=== PATIENT | female | born 1980 | race Caucasian/White ===

== ENCOUNTER 2020-02-29 01:23 | Outpatient (CLI) | payer MEDICAID ==
[2020-02-29 02:45] VITALS: BP 137/75
== END 2020-02-29 02:50 | disposition home or self-care (01) ==
LOC: TRG 01:23 → APU 01:26 → TRG 02:50
PROVIDERS: ATTEND Obstetrics & Gynecology
DX: O47.1 False labor at or after 37 completed weeks of gestation (principal); Z3A.38 38 weeks gestation of pregnancy
CPT/HCPCS: 59025

== ENCOUNTER 2022-04-18 17:32 | Emergency (ER) | payer MEDICAID ==
[2022-04-18 19:12] VITALS: BP 167/99
[2022-04-18] MEDS ORDERED: IBUPROFEN 800 MG TAB PO ONE (19:13)
--- NOTE | 2022-04-18 22:23 | Emergency Department Report ---
ED ENT HPI - General Chief complaint: Earache Stated complaint: RIGHT EAR ACHE/HEAD ACHE/PAIN WHEN SWALLOW Time Seen by Provider: 04/18/22 20:47 Source: patient Mode of arrival: Ambulatory Limitations: No Limitations - History of Present Illness Initial comments: 41-year-old female with history of TMJ syndrome presents to the emergency department states she was over her friend's house and smoked some cigarettes on yesterday evening developed a pressure to the area of the progressively had worsening last night to this point of pain this morning. Pain is dull and throbbing with no palliative or provocative factors. Hearing slightly muffled but reports no no dizziness. No sore throat. No headache, no blurry vision, no ear discharge. No direct trauma to her knowledge. -: Gradual Location: R ear Severity: mild, moderate Quality: dull Consistency: constant Improves with: none Worsens with: none Associated Symptoms: denies: gum swelling, toothache, pain with swallowing, tinnitus, discharge from ear, rhinorrhea - Related Data Home Medications Medication Instructions Recorded Confirmed Last Taken Cetirizine HCl [Zyrtec] 10 mg PO DAILY 09/07/13 03/20/20 09/05/13 21:00 10 mg ALBUTEROL NEB's [Proventil 0.083% 2.5 mg IH TID PRN 12/22/19 03/20/20 12/21/19 10:00 NEBS] Ondansetron [Zofran Odt] 4 mg PO Q8HR PRN MDD 24 12/22/19 03/20/20 Unknown Vit-Fe Fumar-FA [ 1 tab PO QDAY 12/22/19 03/20/20 03/19/20 09:00 Vitamin] Previous Rx's Medication Instructions Recorded Last Taken Type Cefdinir 300 mg PO BID #20 cap 04/18/22 Unknown Rx Ketorolac [Toradol] 10 mg PO Q6H PRN #20 04/18/22 Unknown Rx Allergies Allergy/AdvReac Type Severity Reaction Status Date / Time acetaminophen [From Percocet] Allergy Rash Verified 07/05/14 23:59 clindamycin Allergy Swelling Verified 07/05/14 23:59 hydrocodone bitartrate Allergy Rash Verified 07/05/14 23:59 [From Vicodin] hydromorphone [Hydromorphone] Allergy Rash Verified 07/05/14 23:59 hydromorphone HCl Allergy Rash Verified 07/05/14 23:59 [From Dilaudid] montelukast sodium Allergy Rash Verified 07/05/14 23:59 [From Singulair] oxycodone HCl [From Percocet] Allergy Rash Verified 07/05/14 23:59 Penicillins Allergy Itching Verified 07/05/14 23:59 tinidazole [Tinidazole] Allergy Anaphylaxis Verified 07/05/14 23:59 tramadol Allergy Itching Verified 07/05/14 23:59 ED Dental HPI - General Chief complaint: Earache Stated complaint: RIGHT EAR ACHE/HEAD ACHE/PAIN WHEN SWALLOW Time Seen by Provider: 04/18/22 20:47 Source: patient Mode of arrival: Ambulatory Limitations: No Limitations - Related Data Home Medications Medication Instructions Recorded Confirmed Last Taken Cetirizine HCl [Zyrtec] 10 mg PO DAILY 09/07/13 03/20/20 09/05/13 21:00 10 mg ALBUTEROL NEB's [Proventil 0.083% 2.5 mg IH TID PRN 12/22/19 03/20/20 12/21/19 10:00 NEBS] Ondansetron [Zofran Odt] 4 mg PO Q8HR PRN MDD 24 12/22/19 03/20/20 Unknown Vit-Fe Fumar-FA [ 1 tab PO QDAY 12/22/19 03/20/20 03/19/20 09:00 Vitamin] Previous Rx's Medication Instructions Recorded Last Taken Type Cefdinir 300 mg PO BID #20 cap 04/18/22 Unknown Rx Ketorolac [Toradol] 10 mg PO Q6H PRN #20 04/18/22 Unknown Rx Allergies Allergy/AdvReac Type Severity Reaction Status Date / Time acetaminophen [From Percocet] Allergy Rash Verified 07/05/14 23:59 clindamycin Allergy Swelling Verified 07/05/14 23:59 hydrocodone bitartrate Allergy Rash Verified 07/05/14 23:59 [From Vicodin] hydromorphone [Hydromorphone] Allergy Rash Verified 07/05/14 23:59 hydromorphone HCl Allergy Rash Verified 07/05/14 23:59 [From Dilaudid] montelukast sodium Allergy Rash Verified 07/05/14 23:59 [From Singulair] oxycodone HCl [From Percocet] Allergy Rash Verified 07/05/14 23:59 Penicillins Allergy Itching Verified 07/05/14 23:59 tinidazole [Tinidazole] Allergy Anaphylaxis Verified 07/05/14 23:59 tramadol Allergy Itching Verified 07/05/14 23:59 ED Review of Systems ROS: Stated complaint: RIGHT EAR ACHE/HEAD ACHE/PAIN WHEN SWALLOW Other details as noted in HPI Comment: All other systems reviewed and negative ED Past Medical Hx - Past Medical History Hx Hypertension: Yes Hx Congestive Heart Failure: No Hx Diabetes: No Hx Deep Vein Thrombosis: No Hx Renal Disease: No Hx Sickle Cell Disease: No Hx Seizures: No Hx Asthma: Yes (LAST ATTACK 2 MONTHS AGO) Hx COPD: No Hx HIV: No - Surgical History Additional Surgical History: tonsillectomy. hemorroid. - Social History Smoking Status: Never Smoker - Medications Home Medications: Home Medications Medication Instructions Recorded Confirmed Last Taken Type Cetirizine HCl [Zyrtec] 10 mg PO DAILY 09/07/13 03/20/20 09/05/13 21:00 History 10 mg ALBUTEROL NEB's [Proventil 0.083% 2.5 mg IH TID PRN 12/22/19 03/20/20 12/21/19 10:00 History NEBS] Ondansetron [Zofran Odt] 4 mg PO Q8HR PRN MDD 24 12/22/19 03/20/20 Unknown History Vit-Fe Fumar-FA [ 1 tab PO QDAY 12/22/19 03/20/20 03/19/20 09:00 History Vitamin] Cefdinir 300 mg PO BID #20 cap 04/18/22 Unknown Rx Ketorolac [Toradol] 10 mg PO Q6H PRN #20 04/18/22 Unknown Rx ED Physical Exam - General Limitations: No Limitations General appearance: alert, in no apparent distress - Head Head exam: Present: atraumatic, normocephalic - Eye Eye exam: Present: normal appearance - ENT ENT exam: Present: mucous membranes moist, other (No tenderness with palpation along the TMJ). Absent: TM's normal bilaterally (Tympanic membrane right side is red swollen with effusion suggestive of otitis media infection. No tragal tenderness or pinna tenderness noted. Her ear canal relatively normal. No abrasions no mastoid tenderness on palpation no lymphadenopathy present. Her pharynx is clear airway patent tongue u) - Neck Neck exam: Present: normal inspection - Respiratory Respiratory exam: Present: normal lung sounds bilaterally. Absent: respiratory distress - Cardiovascular Cardiovascular Exam: Present: regular rate, normal rhythm. Absent: systolic murmur, diastolic murmur, rubs, gallop - GI/Abdominal GI/Abdominal exam: Present: soft, normal bowel sounds - Extremities Exam Extremities exam: Present: normal inspection - Back Exam Back exam: Present: normal inspection - Neurological Exam Neurological exam: Present: alert, oriented X3 - Psychiatric Psychiatric exam: Present: normal affect, normal mood - Skin Skin exam: Present: warm, dry, intact, normal color. Absent: rash ED Course Vital Signs 04/18/22 19:11 Temperature 98.9 F Pulse Rate 81 Respiratory 18 Rate Blood Pressure 167/99 O2 Sat by Pulse 100 Oximetry Critical care attestation.: If time is entered above; I have spent that time in minutes in the direct care of this critically ill patient, excluding procedure time. ED Disposition Clinical Impression: Otitis media Disposition: 01 HOME / SELF CARE / HOMELESS Is pt being admited?: No Does the pt Need Aspirin: No Condition: Stable Instructions: Otitis Media, Adult Prescriptions: Cefdinir 300 mg PO BID #20 cap Ketorolac [Toradol] 10 mg PO Q6H PRN #20 PRN Reason: Pain Referrals: NEO WATSON MD [Staff Physician] - 3-5 Days
== END 2022-04-18 22:43 | disposition home or self-care (01) ==
LOC: ED 17:32
DX: H66.91 Otitis media, unspecified, right ear (principal); J45.909 Unspecified asthma, uncomplicated; Z98.890 Other specified postprocedural states; Z88.0 Allergy status to penicillin; Z88.1 Allergy status to other antibiotic agents; Z88.9 Allergy status to unspecified drugs, medicaments and biological substances; Z88.8 Allergy status to other drugs, medicaments and biological substances
CPT/HCPCS: 99282